=== PATIENT | male | born 1945 | race Caucasian/White ===

== ENCOUNTER 2020-05-30 06:29 | Inpatient (IN) ==
[~2020-05-30 06:29] MED LIST: MORPHINE SULFATE 15 MG TABLET.SA PO PRN; ROPIVACAINE HCL/PF 100 MG, EPINEPHrine 0.2 MG, KETOROLAC TROMETHAMINE 30 MG in NORMAL S... IJ PRN; TRANEXAMIC ACID 1,000 MG in NORMAL SALINE 100 ML IV PRN; ceFAZolin SODIUM 1 GM VIAL IV PRN
[2020-05-30] MEDS ORDERED: BUPIVACAINE HCL 50 ML VIAL IJ ONE (07:10)
[2020-05-30] MEDS ORDERED: LIDOCAINE HCL 20 ML VIAL ONE (07:10)
[2020-05-30] MEDS ORDERED: fentaNYL CITRATE/PF 50 MCG/ML AMPUL ONE (07:10)
[2020-05-30] MEDS ORDERED: ONDANSETRON HCL/PF 2 MG/ML VIAL ONE (07:10)
[2020-05-30] MEDS ORDERED: PROPOFOL VIAL IV ONE (07:11)
[2020-05-30] MEDS ORDERED: ceFAZolin SODIUM 1 GM VIAL ONE (07:11)
[2020-05-30] MEDS ORDERED: ISOPROPYL ALCOHOL 480 APPL BTL MC ONE (07:11)
[2020-05-30] MEDS ORDERED: NALOXONE HCL 0.4 MG/ML VIAL IV PRN (07:29)
[2020-05-30] MEDS ORDERED: ONDANSETRON HCL/PF 2 MG/ML VIAL IV PRN ×2 (07:29→10:24)
[2020-05-30] MEDS ORDERED: diphenhydrAMINE HCL 50 MG/ML VIAL IV PRN ×2 (07:29→10:24)
[2020-05-30] MEDS ORDERED: PROCHLORPERAZINE EDISYLATE 5 MG/ML VIAL IV PRN (07:29)
[2020-05-30] MEDS ORDERED: HYDROmorphone HCL 2 MG/ML VIAL IV PRN (07:29)
--- NOTE | 2020-05-30 07:29 | ANES ---
Anesthesia Pre Procedure Eval Vitals/Labs: Last Vital Signs Temp 36.6 C 05/30/20 06:44 Pulse 83 05/30/20 06:44 Resp 18 05/30/20 06:44 BP 157/78 H 05/30/20 06:44 Pulse Ox 97 05/30/20 06:44 HOME MEDICATIONS paroxetine HCl 20 mg tablet 20 mg PO DAILY 08/04/18 [Last Taken 10/05/18] aspirin 81 mg tablet,delayed release 81 mg PO DAILY 09/15/18 [Last Taken 10/05/18] sildenafil 50 mg tablet 50 mg PO .COMPLEX PRN 09/15/18 [Last Taken Unknown] sumatriptan succinate 25 mg tablet 25 mg PO Q2H PRN 09/15/18 [Last Taken Unknown] escitalopram oxalate 20 mg tablet 10 mg PO DAILY 06/30/19 [Last Taken Unknown] finasteride 1 mg tablet 1 mg PO DAILY 06/30/19 [Last Taken Unknown] tramadol 50 mg tablet 50 mg PO HS 06/30/19 [Last Taken Unknown] omeprazole 20 mg capsule,delayed release 20 mg PO DAILY #90 cap 12/14/19 [Last Taken Unknown] tamsulosin 0.4 mg capsule 0.8 mg PO DAILY #180 cap 02/16/20 [Last Taken Unknown] meloxicam 15 mg tablet 15 mg PO DAILY #30 tab 02/19/20 [Last Taken Unknown] trazodone 50 mg tablet 100 mg PO HS #60 tab 02/29/20 [Last Taken Unknown] verapamil 240 mg 24 hr capsule,extended release 240 mg PO DAILY #30 cap 05/24/20 [Last Taken 05/30/20 05:45] Allergies/Adverse Reactions: Allergies Allergy/AdvReac Type Severity Reaction Status Date / Time No Known Allergies Allergy Verified 05/30/20 06:52 - Planned Procedure Planned Procedure: L Arthroplasty Total Knee Medication List Reviewed:: Yes Allergies Verified: Yes Medical History (Last Reviewed 05/30/20 @ 07:27 by Federico Cary CRNA) Arthritis Onset Date: Unknown BiPAP (biphasic positive airway pressure) dependence Enlarged prostate Onset Date: Unknown Hay fever Onset Date: Unknown Hypertension Onset Date: Unknown Knee pain, left Onset Date: ~2018 Lives with spouse No history of alcohol use Non-tobacco user Precancerous skin lesion Onset Date: Unknown Sleep apnea Onset Date: Unknown Wears glasses Wears hearing aid in both ears Diverticulosis Onset Date: Unknown Hiatal hernia Onset Date: Unknown Hypercholesterolemia Onset Date: Unknown Migraine Onset Date: Unknown Mitral valve prolapse Onset Date: Unknown Fracture Onset Date: Unknown Surgical History (Last Reviewed 05/30/20 @ 07:28 by Federico Cary CRNA) History of incision and drainage Onset Date: 09/29/19 [facility]-right upper back H/O thyroidectomy Onset Date: Unknown partial, 90% History of colonoscopy Onset Date: 10/06/18 03/05/14 [facility]-poor prep, scattered diverticula, small internal hemorrhoids. 10/06/18 Luz Elena-diverticulosis. No further needed. History of right hip replacement Onset Date: 201508/21/2015 History of tonsillectomy Onset Date: Unknown Family History (Last Reviewed 05/30/20 @ 07:28 by Federico Cary CRNA) Mother , age 93-colon ca Arthritis Cancer colon ca (dx age 88) Hypertension Father , age 83-AAA Aneurysm Hypertension Brother Alive and well 3 brothers Cancer 1 brother-colon ca (dx age 78) Daughter Alive and well - Family Anesthesia History Family History:: no untoward family reactions to anesthesia, no familial bleeding tendencies, no family history of clotting disorders, no family history of premature - Airway/Neck/Teeth Within Normal Limits:: Yes Denture Type: Perm crown/bridge Mallampatti Score: 2 Thyromental (T-M) distance: > 6 cm Mandibulo Hyoid distance: > 3 cm - Respiratory Respiratory Physical: lungs clear Smoking Status: Never smoker - Cardiovascular Tolerate Activity: Fair Heart Sounds: S1 & S2, Regular - Gastrointestinal NPO since: mn - Anesthesia Assessment and Plan ASA Class: PS, III Anesthesia Type Plan: Block - Left ultrasound guided adductor canal nerve block for postop analgesia, Spinal
[2020-05-30] MEDS: RINGER'S SOLUTION,LACTATED 1,000 ML IV PRN ×3 (07:31→10:33)
--- NOTE | 2020-05-30 07:44 | HP ---
Chief Complaint - Chief Complaint Date of Service: 05/30/20 Time of Service: 07:41 Chief Complaint: Left knee arthrosis History of Present Illness: 75 year old male with long standing left knee pain and arthrosis. Has failed conservative treatment. Wishes to proceed with surgical intervention. See clinic notes for treatment history Medical History (Last Reviewed 05/30/20 @ 07:42 by Bryan Vasquez MD) Arthritis Onset Date: Unknown BiPAP (biphasic positive airway pressure) dependence Enlarged prostate Onset Date: Unknown Hay fever Onset Date: Unknown Hypertension Onset Date: Unknown Knee pain, left Onset Date: ~2018 Lives with spouse No history of alcohol use Non-tobacco user Precancerous skin lesion Onset Date: Unknown Sleep apnea Onset Date: Unknown Wears glasses Wears hearing aid in both ears Diverticulosis Onset Date: Unknown Hiatal hernia Onset Date: Unknown Hypercholesterolemia Onset Date: Unknown Migraine Onset Date: Unknown Mitral valve prolapse Onset Date: Unknown Fracture Onset Date: Unknown Surgical History: Surgical History (Last Reviewed 05/30/20 @ 07:42 by Bryan Vasquez MD) History of incision and drainage Onset Date: 09/29/19 [facility]-right upper back H/O thyroidectomy Onset Date: Unknown partial, 90% History of colonoscopy Onset Date: 10/06/18 03/05/14 [facility]-poor prep, scattered diverticula, small internal hemorrhoids. 10/06/18 Luz Elena-diverticulosis. No further needed. History of right hip replacement Onset Date: 201508/21/2015 History of tonsillectomy Onset Date: Unknown Family History: Family History (Last Reviewed 05/30/20 @ 07:42 by Bryan Vasquez MD) Mother , age 93-colon ca Arthritis Cancer colon ca (dx age 88) Hypertension Father , age 83-AAA Aneurysm Hypertension Brother Alive and well 3 brothers Cancer 1 brother-colon ca (dx age 78) Daughter Alive and well Social History: (Last Reviewed 05/30/20 @ 07:42 by Bryan Vasquez MD) Social History: Marital status: household members: spouse number of children: 3 current occupational status: retired current occupation: Retired-[employer] Highest level of school completed/degree received: Associate degree: academi Service: Yes branch: [employer] Tobacco: Smoking Status: Never smoker Alcohol: alcohol intake: never Substance Use: substance use type: does not use Dietary Habits: caffeine: Yes Type: coffee Personal Safety: victim of physical abuse: No victim of emotional abuse: No Review Of Systems (GEN) - Review of Systems Generalized/Overall Review: Present: No Symptoms Reported - negative except above Allergies/Adverse Reactions: Allergies Allergy/AdvReac Type Severity Reaction Status Date / Time No Known Allergies Allergy Verified 05/30/20 06:52 Home Medications: HOME MEDICATIONS paroxetine HCl 20 mg tablet 20 mg PO DAILY 08/04/18 [Last Taken 10/05/18] aspirin 81 mg tablet,delayed release 81 mg PO DAILY 09/15/18 [Last Taken 10/05/18] sildenafil 50 mg tablet 50 mg PO .COMPLEX PRN 09/15/18 [Last Taken Unknown] sumatriptan succinate 25 mg tablet 25 mg PO Q2H PRN 09/15/18 [Last Taken Unknown] escitalopram oxalate 20 mg tablet 10 mg PO DAILY 06/30/19 [Last Taken Unknown] finasteride 1 mg tablet 1 mg PO DAILY 06/30/19 [Last Taken Unknown] tramadol 50 mg tablet 50 mg PO HS 06/30/19 [Last Taken Unknown] omeprazole 20 mg capsule,delayed release 20 mg PO DAILY #90 cap 12/14/19 [Last Taken Unknown] tamsulosin 0.4 mg capsule 0.8 mg PO DAILY #180 cap 02/16/20 [Last Taken Unknown] meloxicam 15 mg tablet 15 mg PO DAILY #30 tab 02/19/20 [Last Taken Unknown] trazodone 50 mg tablet 100 mg PO HS #60 tab 02/29/20 [Last Taken Unknown] verapamil 240 mg 24 hr capsule,extended release 240 mg PO DAILY #30 cap 05/24/20 [Last Taken 05/30/20 05:45] Exam - Exam Vital Signs: Vital Signs - Last Taken Temp 36.6 C 05/30/20 06:44 Pulse 83 05/30/20 06:44 Resp 18 05/30/20 06:44 BP 157/78 H 05/30/20 06:44 Pulse Ox 97 05/30/20 06:44 Comprehensive Narrative: 05/30/20 07:43 Left leg- palpable DP, sensation intact, varus alignment, crepitance with motion, no skin breakdown Constitutional: Present: Alert, Oriented x3 Respiratory: Present: lungs clear Cardiovascular/Chest: Present: regular rate, rhythm Diagnostic Studies: left knee - end stage knee arthrosis Assessment/Plan - Assessment/Plan (1) Osteoarthritis of left knee Assessment: plan for total knee arthroplasty Problem: Chronic Qualifiers: Osteoarthritis type: primary
[2020-05-30] MEDS ORDERED: DEXTROSE 5%-LACTATED RINGERS 1,000 ML IV PRN (10:24)
[2020-05-30] MEDS ORDERED: MORPHINE SULFATE 2 MG/ML DISP.SYRIN IV PRN (10:24)
[2020-05-30] MEDS ORDERED: MAGNESIUM HYDROXIDE 30 ML UDC PO PRN (10:24)
[2020-05-30] MEDS ORDERED: MAG HYDROX/ALUMINUM HYD/SIMETH 30 ML UDC PO PRN (10:24)
[2020-05-30] MEDS ORDERED: ACETAMINOPHEN 500 MG TABLET PO PRN (10:24)
[2020-05-30] MEDS ORDERED: ZOLPIDEM TARTRATE 5 MG TABLET PO PRN (10:24)
[2020-05-30] MEDS ORDERED: SUMAtriptan SUCCINATE 50 MG TABLET PO PRN (10:26)
--- NOTE | 2020-05-30 10:28 | OR ---
Operative Report - Dictated Report Narrative: Date: 05/30/2020 Preoperative diagnosis: Left knee degenerative joint disease. Postoperative diagnosis: Left knee degenerative joint disease. Procedure: Left total knee arthroplasty. Surgeon: Bryan Vasquez M.D. Cheese Cook: Robby Short PA-C (provided and essential set of skilled, educated hands that assisted with transfer, positioning, prepping, draping, manipulation, retraction, placement of jigs, injection, insertion of implants, irrigation, closure wounds, and dressings all of which could not be performed by the available surgical crew) Anesthesia: Spinal with regional block and local periarticular joint injection. Complications: None Specimens: Bone. Estimated blood loss: Minimal. Tourniquet time: 85 minutes at 325 millimeters of mercury. Retained implants: Depuy Attune size 7 left lugged cemented posterior stabilized femoral component. Size 5 fixed-bearing cemented tibial platform. 7 by 12 millimeter posterior stabilized cross-linked tibial insert. 41 millimeter medialized patella button. Indications: Mr. Bro is a 75-year-old gentleman who has had longstanding left knee pain and arthrosis. This patient was followed in my clinic for period of time with significant complaints of left knee pain consistent with arthritic changes. He had failed conservative measures including, but not limited to, activity modification, passage of time, medications, and other conservative measures. Patient wished to proceed with surgical treatment. The risks, benefits, and alternatives were discussed in clinic. The risks of , blood clots, bleeding, infection, nerve/tendon blood vessel/ injury, malposition of components, intraoperative fracture, postoperative limited range of motion, persistent pain, failure of components, and need for additional procedures. Patient wished to proceed consent was obtained after answering all questions. Procedure: After marking the correct extremity on the floor, the patient was taken to the operating room. A timeout was performed. IV antibiotics consisting of Ancef were administered prior to the procedure. A regional followed by spinal anesthetic was induced by anesthesia, per my request, on the operative table with all bony prominences well-padded. Strickland catheter was placed, and a bump was placed under the operative side buttock. SCDs and ALBIN hose were utilized on the nonoperative leg. A well-padded tourniquet was applied to the operative thigh. The operative leg was then pre-scrubbed with alcohol, prepped, and draped in a standard sterile fashion. After exsanguinating the extremity with an Esmarch bandage, the tourniquet was inflated. After marking out the anterior knee for standard incision centered over the patella, the skin was incised and dissected down to the joint retinaculum. The joint retinaculum was marked out as well as the horizontal axis of the patella, and a standard medial parapatellar arthrotomy was then made. The most proximal aspect of the quadriceps tendon and the patella tendon insertion were protected from release. A partial synovectomy was performed as well as a resection of the infrapatellar fat pad. The distal femoral fat pad proximal to the trochlea was also resected using cautery. The soft tissues were elevated off the medial aspect of the proximal tibia using a Day elevator ensuring that we did not transect the medial collateral ligament. Upon initial evaluation range of motion was approximately 0 degrees to 110 degrees of flexion. There were signs of advanced arthrosis in the medial, lateral, and patellofemoral joint spaces. There were large marginal osteophytes which were removed with a rongeur. The knee was hyperflexed and the patella was tucked laterally. Protecting the surrounding soft tissues with Homans, an entry drill was placed down the femoral canal using Whitesides line for guidance into the entry point. The intramedullary femoral alignment paulina was utilized in order to cut the distal femur in 5 degrees of valgus resecting 10 millimeters of bone. Next the distal femur was sized to a size 7. A posterior referencing guide was utilized to place the distal femoral cutting block in 3 degrees of external rotation. This was pinned into place. The rotation was confirmed both visually and based on an atomic landmarks. The 4 in 1 cutting jig of the appropriate size was utilized in order to make all bony cuts. The yair wing was used to ensure no notching. Retractors were utilized in order to protect surrounding soft tissues. This cut did not result in any excessive notching. We then cut the box centered over the distal femur. This allowed for resection of the anterior and posterior cruciate ligaments. I then turned my attention to the preparation of the tibia. Using an extra medullary tibial alignment paulina, 1 millimeter of bone was resected off the medial articular surface. This was made perpendicular to the mechanical axis of the joint with the alignment paulina centered over the ankle mortise. The alignment paulina was checked and was noted to be parallel to the mechanical axis, centered over the medial one third of the tibial tubercle, paralleling the anterior surface of the tibia. We then turned our attention to the remaining meniscus and soft tissues. These were removed while protecting the surrounding ligaments and soft tissues. The marginal osteophytes off the anterior, posterior, medial, lateral aspects of the femur and tibia were removed. The tibia was sized out to a size 5. Next the tibia was drilled and punched in an externally rotated position. Next the trial femur and a series of tibial inserts were utilized in order to allow for full extension and maximal flexion. It was found that a 12 millimeter insert gave the best range of motion and stability at multiple flexion points as well as at full extension there was less than 2 mm of gapping both medially and laterally. There is minimal anterior translation with the knee at 90 degrees of flexion and no signs of being able to dislocate the knee. The patella was then prepared. The initial thickness was 24 millimeters. This was reamed down to 14 millimeters parallel to the anterior surface of the patella. It was sized out to a size 41 medialized patella button. This was then drilled and trialed. Without any medial restraint the patella tracked appropriately and did not sublux or dislocate. At this point, it was felt these were the appropriate sized implants, and all trials were removed. The standard periarticular joint injection consisting of ropivacaine, Toradol, and epinephrine were injected into the periarticular joint tissues. The bony surfaces were thoroughly irrigated with a pulsatile-suction saline irrigation device. A bone plug from the prior resected anterior chamfer cut was placed into the drill hole at the distal femur. The bony surfaces were then dried in preparation for placement of the implants. The cement was vacuum mixed per the nursing center tutor's instructions. The cement was placed on the dry bony surfaces and posterior aspect of the implants. The implants were impacted into place, removing all extruded cement. At this point anesthesia administered tranexamic acid per protocol intravenously. The knee was placed in extension with axial loading with the trial insert while the cement cured. Once the cement cured, all remaining extruded cement was removed. The knee was placed through a range of motion with the trial insert to ensure appropriate range of motion and stability. Final range of motion was approximately 0 to 120 degrees. The knee was again thoroughly irrigated with pulsatile saline lavage. The final polyethylene insert was then impacted into place ensuring no retained soft tissues. The remaining periarticular joint injection was injected. A medium Hemovac drain was placed exiting superior laterally. The knee was then placed over a triangle and the arthrotomy was closed with interrupted #1 Vicryl after thoroughly irrigating the joint. The deep and subcutaneous tissues were closed with interrupted 0 and 3-0 Vicryl respectively. Skin was closed with a running subcutaneous 3-0 Monocryl and Prineo Dermabond dressing. 4 x 4's, Sof-Rol, and a full leg Jose wrap were applied. All sponge, needle, blade, and instrument c ounts were correct prior to closing the wounds. Postoperative condition: The patient was awoken and transferred to the postanesthesia care unit in stable condition. Plan is to be admitted to the in patient medical/surgical floor postoperatively for 24 hours of IV antibiotics, physical therapy, occupational therapy, and medical comanagement. Patient will be weightbearing as tolerated with range of motion as tolerated. DVT prophylaxis will be with SCDs, ALBIN hose, and pharmacological anticoagulation. Anticipated hospital stay is approximately 1-3 days.
--- NOTE | 2020-05-30 11:14 | ANES ---
Post Anesthesia Discharge - Transfer of Care Transfer of Care handoff given to nurse: Yes - Discharge from PACU Discharge from PACU when meets criteria: Yes - Discharge to ASU Discharge to ASU-no complications/pt stable: Yes
--- NOTE | 2020-05-30 11:16 | ANES ---
Anesthesia Procedure Note Procedure Note: ANESTHESIA PROCEDURE NOTE Date of Procedure: 05/30/2020. Time of procedure: 834. Performed by: Federico Cary CRNA Fabric Normalizer: None. Preprocedure diagnosis: Left knee degenerative joint disease. Post procedure diagnosis: Same. Procedure: Left ultrasound guided adductor canal block for postoperative analgesia. Indications: The patient is a 75-year-old male, requesting left ultrasound- guided abductor canal block for postoperative analgesia related to left total knee arthroplasty. Findings: See below. Details of the procedure: The tissue over the intended target site was cleansed with ChloraPrepand draped in a sterile fashion. 2 ml Lidocaine 1 % was infiltrated to the skin and subcutaneous tissue at the intended target site. Under sterile technique and ultrasound guidance a 20-gauge block needle was inserted through the left sartorius muscle to the saphenous nerve just anterior and medial to the superficial femoral artery and vein. 15 mL's of 0.5% bupivacaine was injected after negative aspiration for blood. Needle tip and spread of local anesthetic surrounding the saphenous nerve was observed throughout the injection with real time ultrasound visualization. The needle was then removed intact. No complications were noted. The images were retained in the Hospital medical database. EBL: Minimal. Fluids: N/A. Specimen: N/A. Post procedure condition: The patient tolerated the procedure well. No complications were noted. Thank you for this consultation. Federico Cary CRNA
[2020-05-30] MEDS: KETOROLAC TROMETHAMINE 15 MG/ML VIAL IV SCH ×3 (11:55→22:16)
[2020-05-30] MEDS: ceFAZolin SODIUM 1 GM in DEXTROSE 5 % IN WATER 100 ML IV SCH ×4 (11:56→18:35)
--- NOTE | 2020-05-30 13:47 | ANES ---
Post Anesthesia Assessment - Vital Signs Vitals: Last Vital Signs Temp 36.1 C 05/30/20 11:42 Pulse 53 L 05/30/20 12:12 Resp 16 05/30/20 12:12 BP 162/94 H 05/30/20 12:12 Pulse Ox 95 05/30/20 12:12 Airway Patency: Normal - Mental Status Level Of Consciousness: Awake - Pain Level Pain Score: 0 - N/V Assessment Nausea/Vomiting Presence: None Dehydration:: No
[2020-05-30] MEDS: TAMSULOSIN HCL 0.4 MG CAP.SR.24H PO SCH ×2 (16:39→17:09)
[2020-05-30] MEDS ORDERED: traZODone HCL 50 MG TABLET PO SCH (21:00)
[2020-05-30] MEDS ORDERED: SENNOSIDES/DOCUSATE SODIUM 1 TAB TABLET PO SCH (21:00)
[2020-05-31] MEDS: ceFAZolin SODIUM 1 GM in DEXTROSE 5 % IN WATER 100 ML IV SCH ×2 (00:11)
[2020-05-31] MEDS: oxyCODONE HCL/ACETAMINOPHEN 1 TAB TABLET PO PRN ×2 (01:10→12:14)
[2020-05-31] MEDS: KETOROLAC TROMETHAMINE 15 MG/ML VIAL IV SCH ×2 (04:14→10:13)
[2020-05-31 06:41] LABS: Hematocrit 33.9 % (42.0-52.0); Hemoglobin 10.5 gm/dL (13.5-18.0); Mean Cell Volume 97.7 fl (78-100); Mean Corpuscular Hemoglobin 30.3 pg (27-31); Mean Platelet Volume 10.1 fl (8-11.3); Platelet Count 180 K/mm3 (150-450); Red Blood Count 3.47 M/mm3 (4.7-6.0); Red Cell Distribution Width 13.5 % (11.5-14.0); White Blood Count 6.7 K/mm3 (4.0-10.5)
[2020-05-31 06:48] LABS: Anion Gap 6.8 mmol/L (6.8-13.8); Calcium * 8.1 mg/dL (7.9-10.9); Carbon Dioxide 31.5 mmol/L (24-32.6); Estimated Creat Clear 55.6; Potassium 4.3 mmol/L (3.4-4.6)
[2020-05-31] MEDS ORDERED: ESCITALOPRAM OXALATE 10 MG TAB PO SCH (09:00)
[2020-05-31] MEDS ORDERED: VERAPAMIL HCL 240 MG TABLET.SA PO SCH (09:00)
[2020-05-31] MEDS ORDERED: PANTOPRAZOLE SODIUM 20 MG TABLET.DR PO SCH (09:00)
[2020-05-31] MEDS ORDERED: PARoxetine HCL 20 MG TABLET PO SCH (09:00)
[2020-05-31] MEDS ORDERED: ENOXAPARIN SODIUM 40 MG/0.4 ML SYRG SC SCH (09:24)
--- NOTE | 2020-05-31 11:44 | DS ---
(1) Status post left knee replacement Problem: Acute (2) GERD (gastroesophageal reflux disease) Problem: Chronic (3) Hypertension Problem: Chronic (4) BPH (benign prostatic hyperplasia) Problem: Chronic (5) Sleep apnea Problem: Chronic (6) Migraines Problem: Chronic (7) Mitral valve prolapse Problem: Chronic Hospital Course: Mr. Bro was admitted to the floor after undergoing left total knee arthroplasty. Tolerated this well. Was admitted to the floor postoperatively for 24 hours of IV antibiotics, pain control, medical comanagement, and occupational and physical therapy. OT and PT were consulted to assist with activities of daily living and ambulation. Was made weightbearing as tolerated with range of motion as tolerated. Pain was initially controlled with IV regimen. This was transitioned to oral once tolerating a by mouth intake. Was resumed on home diet and medications. Had a Strickland catheter inserted and the operating room which was discontinued on postoperative day 1. A drain was placed intraoperatively into the knee which was discontinued on postoperative day 1. Lovenox SCD and ALBIN hose were utilized for DVT prophylaxis. Vital signs remained stable to the hospital course. Serial labs were obtained which showed a final hemoglobin of 10.5 grams. BMP was reviewed and was stable. Physical examination throughout the hospital course showed an extremity that had sensation that was intact to light touch, palpable pulses, a benign wound, motor intact to the toes, ankle, and knee. Knee range of motion was approximately 5 degrees to 80 degrees. Once an oral pain regimen was tolerated and physical therapy goals were met, it was felt that they were stable for discharge to home. Instructions: Continue with weightbearing as tolerated and range of motion as tolerated. It is OK to shower on the wound if it is not draining. If you note any drainage or for comfort you can cover with dry gauze and tape. Change every 2-3 days as needed. Continue with physical therapy. Resume home diet. Report any fever over 101.5 Fahrenheit, uncontrolled pain, increased drainage, foul odor of drainage, new or increased calf pain or shortness of breath, or any other significant complaints. A 325mg dialy aspirin will be started after finishing anticoagulation if not allergic. Continue with ALBIN hose on the operative extremity until instructed otherwise. No driving until instructed otherwise. Follow up in approximately 10-14 days. Procedures Performed: see notes below List Procedures: Left total knee arthroplasty Results and Findings: Lab Pending Results 05/31/20 06:31: WBC 6.7, RBC 3.47 L, Hgb 10.5 L, Hct 33.9 L, MCV 97.7, MCH 30.3, MCHC 31.0 L, RDW 13.5, Plt Count 180, MPV 10.1 05/31/20 06:31: Sodium 143 H, Plasma Sodium 143 H, Potassium 4.3, Chloride 109 H, Carbon Dioxide 31.5, Anion Gap 6.8, BUN 26 H, Creatinine 1.04, Est GFR (Non- Af Amer) 74, BUN/Creatinine Ratio 25.0 H, Random Glucose 121 H, Calcium 8.1 Discharge Location: Other - [facility] Disposition: SNF Condition: Good Level of Care: SNF Discharge Activity: Activity as tolerated, Weight bearing, Other - With wheeled walker Discharge Diet: Low salt Alf Therapy: Physical Therapy, Occupation Therapy Referrals: Rajat Benton DO [Primary Care Provider] - Additional Patient Instructions (free text): [facility]- PT, OT Follow up [facility] Orthopedic office appointment June 20 at 10:00am. Prescriptions (Any new or edited meds): traZODone HCL [Desyrel] 100 mg PO HS #60 tab Transmission Status: Pending to [facility] Tamsulosin HCl [Flomax] 0.8 mg PO DAILY #30 cap Transmission Status: Pending to [facility] Escitalopram Oxalate [Lexapro] 10 mg PO DAILY #30 tab Transmission Status: Pending to [facility] Enoxaparin Sodium [Lovenox] 40 mg SC Q24H #7 disp.syrin Transmission Status: Pending to [facility] Omeprazole 20 mg PO DAILY #90 cap Transmission Status: Pending to [facility] PARoxetine HCL [Paxil] 20 mg PO DAILY #30 tab Transmission Status: Pending to [facility] oxyCODONE HCL/ACETAMINOPHEN [Percocet 5 MG/325 MG] 2 tab PO Q4H PRN #56 tab PRN Reason: Moderate Pain (Pain Scale 4-6) Transmission Status: Received by [facility] Sennosides/Docusate Sodium [Senokot-S] 2 tab PO HS #30 tab Transmission Status: Pending to [facility] SUMAtriptan SUCCINATE [Sumatriptan Succinate] 25 mg PO Q2H PRN #30 PRN Reason: migraines Verapamil HCl [Verapamil ER] 240 mg PO DAILY #30 cap Transmission Status: Pending to [facility] Complete Home Medications List: Complete Home Medication List: paroxetine HCl 20 mg tablet 20 mg PO DAILY 08/04/18 aspirin 81 mg tablet,delayed release 81 mg PO DAILY 09/15/18 Enoxaparin Sodium [Lovenox] 40 mg SC Q24H #7 disp.syrin 05/31/20 Escitalopram Oxalate [Lexapro] 10 mg PO DAILY #30 tab 05/31/20 Omeprazole 20 mg PO DAILY #90 cap 05/31/20 PARoxetine HCL [Paxil] 20 mg PO DAILY #30 tab 05/31/20 SUMAtriptan SUCCINATE [Sumatriptan Succinate] 25 mg PO Q2H PRN #30 05/31/20 Sennosides/Docusate Sodium [Senokot-S] 2 tab PO HS #30 tab 05/31/20 Tamsulosin HCl [Flomax] 0.8 mg PO DAILY #30 cap 05/31/20 Verapamil HCl [Verapamil ER] 240 mg PO DAILY #30 cap 05/31/20 oxyCODONE HCL/ACETAMINOPHEN [Percocet 5 MG/325 MG] 2 tab PO Q4H PRN #56 tab 05/31/20 traZODone HCL [Desyrel] 100 mg PO HS #60 tab 05/31/20
[2020-05-31 12:47] VITALS: BP 114/59
== END 2020-05-31 12:45 | DRG 470 ==
LOC: MS 06:29 → EDSTATUS 08:00
PROVIDERS: ADMIT Orthopaedic Surgery; ATTEND Orthopaedic Surgery
DX: M17.12 Unilateral primary osteoarthritis, left knee